=== PATIENT | male | born 1990 | race Hispanic/Latino ===

== ENCOUNTER 2021-07-15 21:04 | Emergency (ER) | payer SELFPAY ==
[~2021-07-15] VITALS: Ht 188 cm; Wt 99.8 kg
[2021-07-15 21:20] VITALS: BP 130/76
[2021-07-16] MEDS ORDERED: LIDOCAINE HCL 1% 20 ML VIAL INJ ONE
[2021-07-16] MEDS ORDERED: CIPR-279 PO (00:27)
[2021-07-16] MEDS ORDERED: TETANUS/DIPHTHERIA TOXOID [ADULT] 0.5 ML VIAL IM ONE (00:30)
[2021-07-16] MEDS ORDERED: NEOMY SULF/BACITRA/POLYMYXIN B 1 EACH PACKET TP ONE (00:30)
[2021-07-16] MEDS ORDERED: LEVOFLOXACIN 500 MG TABLET PO ONE (00:30)
== END 2021-07-16 00:56 | disposition home or self-care (01) ==
LOC: EDH 21:04
DX: S60.852A Superficial foreign body of left wrist, initial encounter (principal); Z79.899 Other long term (current) drug therapy; W45.8XXA Other foreign body or object entering through skin, initial encounter; Y93.89 Activity, other specified; Y92.89 Other specified places as the place of occurrence of the external cause; Y99.8 Other external cause status
CPT/HCPCS: 10120; 90471; 90714

== ENCOUNTER 2021-08-30 05:21 | Emergency (ER) | payer SELFPAY ==
[~2021-08-30] VITALS: Ht 188 cm; Wt 99.8 kg
[~2021-08-30 05:21] MED LIST: CIPR-279 PO
[2021-08-30] MEDS ORDERED: KETOROLAC 30MG VIAL (30MG/ML) ONE (05:53)
[2021-08-30 05:54] LABS: BASOPHILS % (AUTO) 0.6 % (0.0-5.0); EOSINOPHILS % (AUTO) 3.4 % (0.0-8.0); HEMATOCRIT 46.6 % (42-54); LYMPHOCYTES % (AUTO) 35.4 % (21.0-51.0); MEAN CORPUSCULAR HEMOGLOBIN 30.3 pg (27.0-33.0); MEAN CORPUSCULAR HGB CONC 34.1 g/dL (32.0-36.0); MEAN CORPUSCULAR VOLUME 88.8 fL (79-99); MONOCYTES % (AUTO) 8.6 % (3.0-13.0); NEUTROPHILS % (AUTO) 51.6 % (40.0-77.0); PLATELET COUNT (AUTO) 264 K/uL (130-400); RED BLOOD CELL COUNT(AUTO) 5.25 MIL/uL (4.50-6.20); RED CELL DISTRIBUTION WIDTH 12.9 % (11.0-15.5)
[2021-08-30 05:56] LABS: APPEARANCE,URINE Clear (CLEAR); BILIRUBIN,URINE Negative (NEGATIVE); COLOR,URINE Yellow (YELLOW); GLUCOSE, URINE (UA) Negative (NEGATIVE); KETONES,URINE 15 mg/dL (NEGATIVE); LEUKOCYTE ESTERASE ,URINE Trace (NEGATIVE); NITRATE,URINE Negative (NEGATIVE); OCCULT BLOOD,URINE Negative (NEGATIVE); PROTEIN,URINE Trace mg/dL (NEGATIVE)
[2021-08-30] MEDS ORDERED: ONDANSETRON 4MG INJ IVP ONE (06:00)
[2021-08-30] MEDS ORDERED: 0.9%NACL 1000ML 1,000 ML IV ONE (06:00)
[2021-08-30] MEDS ORDERED: KETOROLAC 15MG/ML VIAL (15MG/ML) IV ONE (06:00)
[2021-08-30 06:07] LABS: ALBUMIN 4.2 g/dL (3.5-5.0); BILIRUBIN,TOTAL 0.3 mg/dL (0.2-1.0); CREATININE 1.1 mg/dL (0.5-1.5); POTASSIUM 3.3 mmol/L (3.5-5.1); RBC,URINE None Seen /HPF (0-1); TOTAL PROTEIN, SERUM 7.6 g/dL (6.0-8.3)
[2021-08-30 06:08] LABS: BACTERIA,URINE Few /HPF (None Seen); MUCUS,URINE Few LPF (None Seen); SQUAMOUS EPITHELIAL CELL,UR 0-2 /HPF (0-2); WBC,URINE 0-1 /HPF (0-1)
[2021-08-30 09:22] VITALS: BP 135/83
== END 2021-08-30 09:41 | disposition home or self-care (01) ==
LOC: EDH 05:21
DX: N20.1 Calculus of ureter (principal); Z88.6 Allergy status to analgesic agent; F17.200 Nicotine dependence, unspecified, uncomplicated; Z79.899 Other long term (current) drug therapy; Z79.1 Long term (current) use of non-steroidal anti-inflammatories (NSAID)
CPT/HCPCS: 36415; 74176; 80053; 81001; 85025; 96361; 96374; 96375; 99284; J1885; J2405